=== PATIENT | male | born 1990 | race African-American/Black ===

== ENCOUNTER 2017-07-13 07:21 | Day surgery (SDC) | payer OTHER ==
[~2017-07-13 07:21] MED LIST: HYDROmorphone 2 MG/ML VIAL IV PRN; IV RINGERS,LACTATED 1000ML 1,000 ML IV SCH; LIDOCAINE 1% PF 2 ML VIAL. ID PRN; MORPHINE SULFATE 2 MG/ML DISP.SYRIN. IV PRN; ONDANSETRON PF 4 MG/2 ML VIAL. IV PRN; PROCHLORPERAZINE 10 MG/2 ML VIAL. IV PRN; ceFAZolin 2GM PREMIX 2 GM/50 ML BAG IV ONE; fentaNYL PF VIAL 100 MCG/2 ML VIAL IV PRN
--- NOTE | 2017-07-13 07:35 | DISCH ---
DISCHARGE INSTRUCTIONS Condition on Discharge Condition on Discharge: Stable Activity After Discharge Activity Instructions for Disc: Other, see below Other activity instructions: frequent AROM at knee Bathing Instructions: Shower-keep dressing dry Weight Bearing Status after Di: Non weight bearing Diet after Discharge Diet after Discharge: Regular Wound Incision Care Wound/Incision Care: Ice to area for comfort, Keep wound/cast CDI, Change dressing Contacting the DR. after DC Call your doctor for: Concerns you may have Follow-Up Follow up with: Maria G in 2wks Treatment/Equipment after DC Adaptive Equipment Issued: None, DARCIE Vásquez II, MD Jul 13, 2017 07:35
[2017-07-13] MEDS ORDERED: MIDAZOLAM HCL/PF 2 MG/2 ML VIAL. ONE (08:14)
[2017-07-13] MEDS ORDERED: fentaNYL PF VIAL 100 MCG/2 ML VIAL ONE (08:15)
[2017-07-13] MEDS ORDERED: ONDANSETRON PF 4 MG/2 ML VIAL. ONE (08:16)
[2017-07-13] MEDS ORDERED: PROPOFOL 20 ML IV ONE ×3 (08:16→11:08)
[2017-07-13] MEDS ORDERED: DEXAMETHASONE SOD PHOS 20 MG/5 ML VIAL. ONE (08:16)
[2017-07-13] MEDS ORDERED: LIDOCAINE 2% PF Vial for OR 5 ML VIAL. ONE (08:16)
[2017-07-13] MEDS ORDERED: THROMBIN TOPICAL 20,000 UNIT SPRAY.SYRN KIT TP ONE (09:25)
[2017-07-13] MEDS ORDERED: GLYCOPYRROLATE 1 MG/5 ML VIAL. ONE (09:47)
[2017-07-13] MEDS ORDERED: KETOROLAC 30 MG/ML INJ FOR OR. INJ ONE (09:47)
[2017-07-13] MEDS ORDERED: BUPIVACAINE MPF 0.5% 30 ML VIAL. ONE (10:26)
[2017-07-13] MEDS ORDERED: EPINEPHrine VIAL 30 MG/30 ML VIAL ONE (10:26)
[2017-07-13] MEDS ORDERED: LIDOCAINE 1% 20 ML VIAL. ONE (10:26)
--- NOTE | 2017-07-13 11:05 | PDOC4 ---
Operative Note Operative Note Date of procedure: 07/13/2017 Surgeon: Jose Antonio Gordon Preoperative diagnosis: Right knee cartilage injury Postoperative diagnosis: 1 x 2 cm full-thickness cartilage defect at lateral tibial plateau Procedure performed: #1 DeNovo implantation 2 cartilage defect #2 diagnostic right knee arthroscopy Findings: Cartilage defect as noted above Intact cartilage at the medial compartment, lateral femoral condyle, patellofemoral compartment Fraying of lateral meniscus but the majority of the meniscus was intact Intact medial meniscus Intact she ligaments Knee was stable to varus and valgus, negative Kim with solid endpoint, negative pivot shift on examination under anesthesia Anesthesia: Gen. Tourniquet time: Less than 2 hours Blood loss: 10 mL Complications: None Reason for procedure: Patient is a 27-year-old inmate who I had seen and evaluated after a knee injury. He desired to get back to playing basketball and be more active but was limited from knee pain and swelling. Clinical and radiographic examination including MRI were performed and reviewed by myself. I discussion of the risks, benefits, and alternatives to the above surgery and he wished to proceed. Description of procedure: Patient was greeted in the preoperative area by myself for the correct extremity was marked and verified. He was taken back to the operative suite and his antibiotics were started and row. Once in the operating room, he was transferred gently supine to the OR table and secured to the bed with all pressure points padded. He had successful induction of a general anesthetic. We applied a nonsterile tourniquet to his right thigh. Padded rest and at the foot of the bed was applied as well as a padded bolster at his hip to help maintain his knee at 90 of flexion. I then conducted my examination under anesthesia with the above-noted findings. We then proceeded to prep and drape right lower extremity in our usual sterile fashion. The standard preoperative timeout was then conducted. I then palpated and marked her surface anatomy and cristiana lines for my standard anterolateral arthroscopic portal and then the limb was exsanguinated and tourniquet was insufflated. I then incised skin for my portal and introduced a blunt arthroscopic trocar into the suprapatellar pouch and conducted my diagnostic arthroscopy with the above- noted findings. Upon entering the medial compartment I used a spinal to localize the anteromedial portal and incised skin in accordance with this. I inserted a probe and continued my diagnostic arthroscopy. Upon entering the lateral compartment I trimmed away some fraying at his lateral meniscus, very small portion, only about the in her millimeter. I then inspected his cartilage lesion and debrided this with the shaver little bit. I then removed my arthroscopic instrumentation and made a skin incision for a lateral parapatellar arthrotomy and incised skin with a scalpel. Dissected subcutaneous tissue with electrocautery. I then bluntly dissected down until I identified the capsule and incised this in line with my portal. I then placed my Z retractors around his condyle. With his leg in [id number] position I had access to the cartilage lesion. I used a Mclean elevator to gently displace the meniscus for better visualization while I debrided the cartilage site with a combination of ring curettes and metal suction tip device. After I had adequately debrided it I directed my attention to opening my allograft packet and removing the fluid. Once I had removed all the fluid I used a Mclean elevator to carefully scooped the cartilage graft into place and then applied the Tisseal drop by drop to cover the graft. After allowing this to set up, I then inspected and I felt that I had repaired the defect well. I then removed the retractors and closed his arthrotomy with simple interrupted 0 Vicryl. Inverted interrupted 20 was used for subcutaneous tissue and running 4-0 Monocryl in a subcuticular fashion for skin. The anteromedial portals closed with an inverted interrupted 4-0 Monocryl as well. I injected local anesthetic around the jennifer-incisional areas. Prior to accomplishing wound closure all counts correct 2. No complications. After a sterile dressing was applied and Quentin wrap the tourniquet was let down. A hinged knee brace was applied from 0-90 . Patient was awakened from anesthesia, he tolerated surgery well. No complications. At the conclusion of the surgery, he was awakened and transferred gently supine to the recovery room cart and taken to the PACU in a stable and x-ray condition. Postoperative plan is to release him back to the care of the custodial. He'll be nonweightbearing for 6 weeks. I discussed the importance of active range of motion exercises with he, the guards, and it was provided in written form. He will follow up with me in 2 weeks, sooner should a problem arise JOSE ANTONIO GORDON II, MD Jul 13, 2017 11:05
[2017-07-13] MEDS ORDERED: oxyCODONE/APAP 5/325 1 TAB TABLET PO PRN (11:45)
[2017-07-13] MEDS: fentaNYL PF VIAL 100 MCG/2 ML VIAL IV PRN ×2 (11:54→12:03)
[2017-07-13] MEDS: MORPHINE SULFATE 2 MG/ML DISP.SYRIN. IV PRN ×2 (12:16→12:32)
[2017-07-13 12:39] VITALS: BP 134/85
[2017-07-13] MEDS ORDERED: OXYC-323 PO (12:55)
[2017-07-13] MEDS ORDERED: DOCU-109 PO (12:56)
[2017-07-13] MEDS ORDERED: ONDA4TAB12 PO (12:56)
== END 2017-07-13 13:09 | disposition home or self-care (01) ==
LOC: SURG 07:21
PROVIDERS: ATTEND Orthopaedic Surgery Sports Medicine
PROC: 0SJC4ZZ Inspection of Right Knee Joint, Percutaneous Endoscopic Approach (ICD-10-PCS; principal; 2017-07-13 09:30)
DX: S89.81XA Other specified injuries of right lower leg, initial encounter (principal); X58.XXXA Exposure to other specified factors, initial encounter; Y93.89 Activity, other specified; Y92.89 Other specified places as the place of occurrence of the external cause; Y99.8 Other external cause status; I10 Essential (primary) hypertension; Z87.39 Personal history of other diseases of the musculoskeletal system and connective tissue
CPT/HCPCS: 27415; C1763; C1782; J0171; J0690; J1100; J1885; J2250; J2270; J2405; J2704; J3010; J3490; J2001